=== PATIENT | male | born 1995 | race Caucasian/White ===

== ENCOUNTER 2021-12-23 13:50 | Emergency (ER) | payer BC, OTHER ==
[2021-12-23] MEDS ORDERED: IBUPROFEN 600 MG TABLET (FP) PO ONE ×2 (13:59→14:08)
[2021-12-23 14:06] VITALS: BP 134/96; PULSE 88; RESP 16; TEMP 98.5; BMI 31.5
== END 2021-12-23 15:15 | disposition home or self-care (01) ==
LOC: FER 13:50 → SUPCPDRO 13:50 → FER 15:15
DX: S64.01XA Injury of ulnar nerve at wrist and hand level of right arm, initial encounter (principal); X50.0XXA Overexertion from strenuous movement or load, initial encounter
CPT/HCPCS: 73110-TC-RT-FY; 73130-TC-RT-FY; 99285-25